=== PATIENT | female | born 1980 | race Caucasian/White ===

== ENCOUNTER → 2017-02-08 | Outpatient (CLI) | payer OTHER ==
[2017-02-08 16:15] LABS: HEPATITIS B AB POS
== END | disposition home or self-care (01) ==
LOC: C.LABSPEC 15:42
PROVIDERS: ATTEND Nurse Practitioner Family
DX: Z77.21 Contact with and (suspected) exposure to potentially hazardous body fluids (principal)

== ENCOUNTER 2020-03-16 02:39 | Inpatient (IN) ==
[2020-03-16] MEDS ORDERED: OXYTOCIN 30 UNITS/500 ML BAG IV PRN ×3 (03:27→14:51)
[2020-03-16] MEDS: LACTATED RINGER'S 1,000 ML IV PRN ×2 (03:34→11:04)
[2020-03-16] MEDS ORDERED: BUPIVACAINE 0.25% 30 ML VIAL ONE (03:42)
[2020-03-16] MEDS ORDERED: ePHEDrine sulfate 50 MG/ML AMP ONE (03:42)
[2020-03-16] MEDS ORDERED: fentaNYL citrate 100 MCG/2 ML VIAL ONE (03:42)
[2020-03-16] MEDS ORDERED: fentaNYL 2MCG/ML ROPIV 1.25MG/ML 100 ML BAG EPI ONE (03:43)
--- NOTE | 2020-03-16 03:50 | History & Physical Report ---
Date of Service March 16, 2020 Assessment & Plan Admission and Anticipated Discharge Date Admission Date: March 16, 2020 IUP at 41 weeks in active labor currently having moderate variables that were recurrent but with position change have now become intermittent. History of Present Illness Primary Care Provider: NO PCP Patient is a 39 yo white female EDC 03/09/20 who presents at 41 weeks with regular contractions and bloody show. contractions are now every 5-7 minutes. (-) SPROM. GBS negative. complicated by AMA and post term gestation. Allergies Allergy/AdvReac Type Severity Reaction Status Date / Time No Known Allergies Allergy Verified 03/16/20 03:06 Home Medications Home Medications Medication Instructions Recorded Confirmed Type prenat.vits,dilma,mem-nzln-kdeao 1 tab PO DAILY 07/23/19 03/16/20 History ondansetron HCl 4 mg tablet 4 mg PO Q4H #30 tab 11/11/19 03/16/20 Rx docusate sodium [Colace] 100 mg PO DAILY 03/16/20 03/16/20 History Patient History Medical History Cervical cancer screening Supervision of elderly multigravida Surgical History H/O knee surgery S/P wisdom tooth extraction Family History Father Dyslipidemia Hypertension Heart disease Osteoporosis Grandmother (Maternal) Colorectal cancer Other Skin cancer Social History Smoking Status: Former smoker Smoking End Date: 2017; Do You Dip or Chew Tobacco: No; Hx Alcohol Use: No Hx Substance Use: No Preferred Language: Latvian Communication Ability: Effective 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 Required: No Beliefs That Will Affect Care: None marital status: Single marital status details: Adam Irishchristiana (33) [phone] Current Living Situation: Family and Significant Other Current Living Situation Comment: adam, 2 children current occupational status: employed 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 @ [employer] Other Information That Helps Us Care for You: No Feels Safe at Home: Yes Safety Concerns: Feels Safe At This Time Assistive Devices: Glasses Review of Systems All systems reviewed & are unremarkable except as noted in HPI & below Physical Exam Constitutional: WD/WN, vitals as above Respiratory: normal respiratory effort, lungs clear to auscultation Cardiovascular: RRR, no murmur, no edema Psychiatric: A+Ox3, euthymic affect Genitourinary: OB Exam Abdomen: + vertex (by ultrasound) and + regular contractions Manual OB Exam: + cervical dilation 3 cm, + cervical effacement 100% and + station high OB Exam Monitor Tracing: + external FHT monitor used, + external uterine monitor used, + category II, + normal FHT variability and + variable decelerations (moderate- were recurrent initially then intermittent) Results & Data ([facility]) Vital Signs (Past 12 Hours) Vital Signs Temp Pulse Resp BP 03/16/20 03:03 97.9 F 75 20 136/82 Coding Level of Care Code None
[2020-03-16 04:04] LABS: Hematocrit (blood only) 37.3 % (37-47); Hemoglobin 12.7 g/dL (12.0-16.0); Mean Corpuscular Hemoglobin 30.2 pg (25-34); Mean Corpuscular Volume 88.6 fL (80-100); Mean Platelet Volume 10.4 fL (7.4-10.4); Platelet Count 240 K/uL (130-400); RDW Coefficient of Variation 14.1 % (11.5-14.5); RDW Standard Deviation 45.6 fL (36.4-46.3); Red Blood Count 4.21 M/uL (4.2-5.4); White Blood Count 13.67 K/uL (4.8-10.8)
[2020-03-16] MEDS ORDERED: ONDANSETRON INJ 2 MG/ML 2 ML VIAL ONE (04:08)
[2020-03-16] MEDS ORDERED: ONDANSETRON INJ 2 MG/ML 2 ML VIAL IV PRN ×2 (04:09→05:25)
--- NOTE | 2020-03-16 04:54 | Anesthesiology Consultation ---
Date of Service March 16, 2020 Assessment & Plan (1) Encounter for pre-operative examination: Chart Review Chart Review: Patient NOT seen in Pre Admission Testing and Acceptable Risk for Labor Epidural Consults Requested none ASA ASA2 Proposed Anesthesia Anesthesia Type: Labor Epidural Risk / Benefits Reviewed With: PT / POA / Parent / Guardian, Accepts Plan and Informed Consent Obtained History Height/Weight Height: 5 ft 4 in Weight: 71.214 kg Allergies Allergy/AdvReac Type Severity Reaction Status Date / Time No Known Allergies Allergy Verified 03/16/20 03:06 Medications Home Medications Medication Instructions Recorded Confirmed Last Taken prenat.vits,dilma,jmu-yxuk-vmnic 1 tab PO DAILY 07/23/19 03/16/20 03/15/20 08:00 ondansetron HCl 4 mg tablet 4 mg PO Q4H #30 tab 11/11/19 03/16/20 03/15/20 08:00 docusate sodium [Colace] 100 mg PO DAILY 03/16/20 03/16/20 03/15/20 08:00 Active Medications Generic Name Dose Route Start Last Admin Trade Name Freq PRN Reason Stop Dose Admin Lactated Ringer's 1,000 mls @ 125 mls/hr 03/16/20 03:27 03/16/20 04:28 Lr IV 03/18/20 03:26 125 mls/hr .Q8H PRN Infusion L&D Protocol Protocol NPO Date Last Intake of Fluids: 03/16/20 Time Last Intake of Fluids: 04:53 Date Last Intake of Solids: 03/15/20 Time Last Intake of Solids: 19:00 Past Medical History Medical History Cervical cancer screening Supervision of elderly multigravida Exercise / Class Metabolic Activity II 4-5 Yardwork/Stairs/Walk up hill Past Family History Family History Father Dyslipidemia Hypertension Heart disease Osteoporosis Grandmother (Maternal) Colorectal cancer Other Skin cancer Past Surgical History Surgical History H/O knee surgery S/P wisdom tooth extraction Past Anesthesia History No Hx of Anesthesia Complications History of PONV History of PONV Social History Smoking Status: Former smoker Do You Dip or Chew Tobacco: No Smoking End Date: 2017 Hx Alcohol Use: No Hx Substance Use: No Review of Systems Patient denies history of abnormal bleeding or bleeding disorder. Patient denies active use of anticoagulants other than low dose aspirin. Patient denies numbness, tingling or weakness in lower extremities. Negative for chest pain or shortness of breath. Physical Exam Vital Signs Last Vital Signs Temp 36.6 C 03/16/20 03:03 Pulse 81 03/16/20 04:45 Resp 20 03/16/20 03:03 BP 136/82 03/16/20 03:03 Pulse Ox 97 03/16/20 04:45 Constitutional not obese (gravid uterus) ENMT Mouth: no TMJ abnormality and oral opening not small Thyromental Distance: > or= 3.5 Finger Breadths Mallampati Class: II Neck normal visual inspection; neck extension not limited Respiratory normal respiratory effort Auscultation: lungs clear to auscultation bilaterally Cardiovascular Rate/Rhythm: regular rate and regular rhythm Heart Sounds: no murmur Neurologic moves all extremities Motor/Sensory: no sensory deficit Psychiatric Orientation: alert and oriented x 3 Testing Laboratory Results 03/16/20 03:47
[2020-03-16] MEDS ORDERED: DiphenhydrAMINE HCL 50 MG/ML VIAL IV PRN (05:25)
[2020-03-16] MEDS ORDERED: NALOXONE HCL 1 MG in SODIUM CHLORIDE 0.9% 1000ML 1,000 ML IV PRN (05:25)
[2020-03-16] MEDS ORDERED: fentaNYL 2MCG/ML ROPIV 1.25MG/ML 100 ML BAG EPI PRN (05:25)
[2020-03-16] MEDS ORDERED: NALOXONE HCL 0.4 MG/1 ML VIAL/CARP IV PRN (05:25)
[2020-03-16] MEDS ORDERED: ePHEDrine sulfate 50 MG/ML AMP IV PRN (05:25)
[2020-03-16] MEDS ORDERED: CALCIUM CARBONATE 500 MG CHEWABLE TAB PO PRN (10:16)
--- NOTE | 2020-03-16 13:28 | Labor Progress Brief Note ---
Date of Service March 16, 2020 Patient has been 8 cm admitted overnight by Dr. Jimenez multip had an epidural initially contractions spaced however she has had recurrent variable decelerations with contractions she is now progressed to an anterior lip watch the heart rate tracing carefully at this stage would expect vaginal delivery Assessment & Plan Admission and Anticipated Discharge Date Admission Date: March 16, 2020 Results & Data ([facility]) Vital Signs (Past 12 Hours) Vital Signs Temp Pulse Resp BP Pulse Ox 03/16/20 13:22 81 100 03/16/20 13:17 76 100 03/16/20 13:12 98 H 100 03/16/20 13:07 97 H 100 03/16/20 13:02 71 100 03/16/20 12:59 78 125/77 03/16/20 12:57 80 100 03/16/20 12:52 86 100 03/16/20 12:47 79 100 03/16/20 12:45 83 123/72 03/16/20 12:42 82 100 03/16/20 12:37 87 100 03/16/20 12:32 88 100 03/16/20 12:31 98.1 F 80 20 128/75 03/16/20 12:27 84 100 03/16/20 12:22 81 100 03/16/20 12:17 93 H 100 03/16/20 12:16 83 121/76 03/16/20 12:12 79 100 03/16/20 12:07 93 H 100 03/16/20 12:02 83 100 03/16/20 12:00 72 127/75 03/16/20 11:57 81 100 03/16/20 11:52 80 100 03/16/20 11:47 81 100 03/16/20 11:45 82 132/74 03/16/20 11:42 92 H 100 03/16/20 11:37 85 100 03/16/20 11:32 75 100 03/16/20 11:30 70 127/72 03/16/20 11:27 86 100 03/16/20 11:22 109 H 94 03/16/20 11:17 74 100 03/16/20 11:15 74 135/74 03/16/20 11:12 70 100 03/16/20 11:07 73 100 03/16/20 11:02 87 100 03/16/20 11:00 71 126/73 10/05/20 10:57 74 100 10/05/20 10:52 81 99 10/05/20 10:47 80 100 10/05/20 10:45 75 127/73 10/05/20 10:42 81 100 10/05/20 10:37 94 H 99 10/05/20 10:32 77 100 10/05/20 10:30 74 122/79 10/05/20 10:27 79 99 10/05/20 10:22 80 99 10/05/20 10:17 75 99 10/05/20 10:15 76 130/76 10/05/20 10:12 77 100 10/05/20 10:07 74 98 10/05/20 10:02 78 99 10/05/20 10:01 88 119/76 10/05/20 09:57 84 98 10/05/20 09:52 81 99 10/05/20 09:47 100 H 99 10/05/20 09:45 81 131/80 10/05/20 09:42 83 99 1005/20 09:37 83 98 10/05/20 09:32 95 H 98 10/05/20 09:31 83 123/75 10/05/20 09:25 79 99 10/05/20 09:20 84 99 10/05/20 09:15 81 137/74 98 10/05/20 09:10 77 98 10/05/20 09:05 75 98 10/05/20 09:00 76 120/72 98 10/05/20 08:55 78 98 10/05/20 08:50 83 98 10/05/20 08:45 74 119/68 98 10/05/20 08:40 75 97 10/05/20 08:35 75 98 10/05/20 08:31 74 129/73 10/05/20 08:30 73 99 10/05/20 08:25 88 98 10/05/20 08:20 79 99 10/05/20 08:16 71 126/72 10/05/20 08:15 80 99 10/05/20 08:10 74 99 10/05/20 08:05 69 99 10/05/20 08:00 65 125/71 99 10/05/20 07:55 68 99 10/05/20 07:50 74 99 10/05/20 07:45 67 119/75 98 10/05/20 07:40 65 99 10/05/20 07:35 81 99 10/05/20 07:30 70 132/75 99 10/05/20 07:25 66 98 10/05/20 07:20 72 98 10/05/20 07:15 97.7 F 66 20 129/75 99 10/05/20 07:10 68 99 1005/20 07:05 72 98 10/05/20 07:00 73 123/69 98 1005/20 06:55 70 99 1005/20 06:50 72 99 10/05/20 06:45 73 99 10/05/20 06:44 73 127/80 10/05/20 06:40 76 98 1005/20 06:35 65 99 1005/20 06:31 68 127/79 1005/20 06:30 70 100 10/05/20 06:25 70 99 10/05/20 06:20 69 98 1005/20 06:15 72 18 121/78 98 1005/20 06:10 79 99 1005/20 06:05 97.5 F L 78 18 98 1005/20 06:00 78 137/71 99 1005/20 05:55 72 99 1005/20 05:54 75 126/77 1005/20 05:50 85 131/79 98 1005/20 05:45 70 130/67 98 10/05/20 05:40 64 125/68 99 10/05/20 05:35 77 98 1005/20 05:34 77 131/75 1005/20 05:30 77 134/77 98 10/05/20 05:25 81 97 10/05/20 05:24 88 116/73 10/05/20 05:22 96 H 122/79 10/05/20 05:20 94 H 121/75 98 10/05/20 05:18 88 127/79 1005/20 05:16 103 H 117/75 1005/20 05:15 88 98 10/05/20 05:14 109 H 116/82 10/05/20 05:11 91 H 138/79 10/05/20 05:10 80 99 1005/20 05:05 77 98 1005/20 05:00 78 99 10/05/20 04:55 84 100 03/16/20 04:53 95 H 87 L 03/16/20 04:50 84 97 03/16/20 04:45 81 97 03/16/20 04:40 79 98 03/16/20 04:35 80 100 03/16/20 03:03 97.9 F 75 20 136/82 Coding Level of Care Code None
--- NOTE | 2020-03-16 14:36 | Delivery Summary ---
Vaginal Delivery Summary Date of Service March 16, 2020 Vaginal Delivery Summary Spontaneous vaginal delivery patient arrived earlier in the evening progressed to 8 cm she did have some repeated variable decelerations with that was able to progress to fully dilated she pushed over only a few contractions during delivering a baby in right occiput anterior position there was thin meconium bulb was used to suction the mouth and nares at delivery of the head there was a loose nuchal cord which was passed over the head x1 and gentle traction on the baby no excessive force baby delivered live vigorous infant cord clamped and cut cord gases obtained cord blood obtained placenta removed with gentle traction IV Pitocin started second-degree tear repaired with 3-0 Vicryl sponge and instrument counts correct estimated blood loss 150 mL rectal exam negative for defects or sutures [facility] Vaginal Delivery Charge Procedure Anesthesia type: Epidural
[2020-03-16] MEDS ORDERED: BENZOCAINE 20% AER SPR 82.5 GM CAN EXT PRN (14:51)
[2020-03-16] MEDS ORDERED: SUPERCREAM 0.870% 15 GM JAR EXT PRN (14:51)
[2020-03-16] MEDS ORDERED: ACETAMINOPHEN 325 MG TAB PO PRN (14:51)
[2020-03-16] MEDS ORDERED: DIPHTHERIA/TETANUS/PERTUSSIS 0.5 ML SYR/VIAL IM ONE (14:51)
[2020-03-16] MEDS ORDERED: bisacodyL 10 MG SUPP PR PRN (14:51)
[2020-03-16] MEDS ORDERED: LACTATED RINGER'S 1,000 ML IV SCH (14:51)
[2020-03-16] MEDS ORDERED: OXYCODONE/ACETAMINOPHEN 5mg/325mg TAB PO PRN (14:51)
[2020-03-16] MEDS ORDERED: HYDROCORTISONE ACETATE 25 MG SUPP PR PRN (14:51)
[2020-03-16 15:15] LABS: Base Excess Cord Arterial Bld -3.5 mEq/L (-9-1.8); Base Excess Cord Venous Blood -3.2 mEq/L (-7.7-1.9); CO2 Cord Arterial Blood 52 mmHg (39.1-73.5); Cord Venous Blood HCO3 20 mmol/L (18.4-26.8); Cord Venous Blood PCO2 33 mmHg (30.4-57.2); Cord Venous Blood PO2 36 mmHg (14.1-43.3); HCO3 Cord Arterial Blood 24 mmol/L (19.7-28.5); PO2 Cord Arterial Blood 24 mmHg (4.1-31.7); pH Cord Arterial Blood 7.28 (7.1-7.38)
[2020-03-16 15:17] LABS: Oxygen Sat Cord Arterial Blood < 60.0 % (<60)
--- NOTE | 2020-03-16 16:31 | Anesthesia Procedure Note ---
Date of Service March 16, 2020 Anesthesia Post Epidural Note Vital Signs Vital Signs: Temp Pulse Resp BP Pulse Ox 36.7 C 80 16 135/83 100 03/16/20 12:31 03/16/20 16:15 03/16/20 14:45 03/16/20 16:15 03/16/20 14:27 Notes Mental Status: alert / awake / arousable and participated in evaluation Patient Amnestic to Procedure: No Nausea / Vomiting: adequately controlled Pain: adequately controlled Airway Patency, RR, SpO2: stable & adequate BP & HR: stable & adequate Hydration State: stable & adequate Neuraxial Anesthesia: was administered and sensory block is resolving Anesthetic Complications: no major complications apparent and Pt Satisfied with anesthetic care Epidural: Removed without complications and With tip intact
[2020-03-16] MEDS: DOCUSATE SODIUM 100 MG CAP PO SCH (21:28)
[2020-03-16] MEDS: IBUPROFEN 600 MG TAB PO PRN (21:30)
[2020-03-17 06:26] LABS: Hematocrit (blood only) 30.7 % (37-47); Hemoglobin 10.3 g/dL (12.0-16.0); Mean Corpuscular Hemoglobin 29.9 pg (25-34); Mean Corpuscular Hgb Conc 33.6 g/dL (32-36); Mean Platelet Volume 10.2 fL (7.4-10.4); Platelet Count 184 K/uL (130-400); RDW Coefficient of Variation 14.3 % (11.5-14.5); RDW Standard Deviation 46.6 fL (36.4-46.3); Red Blood Count 3.45 M/uL (4.2-5.4); White Blood Count 12.05 K/uL (4.8-10.8)
--- NOTE | 2020-03-17 06:30 | Obstetrical Progress Note ---
Date of Service <Savage Hook MD - Last Filed: 03/17/20 07:16> March 17, 2020 Assessment & Plan <Savage Hook MD - Last Filed: 03/17/20 07:16> (1) Spontaneous vaginal delivery: Shabana is a 39 y/o female who is now PPD #1 following at 41 weeks - Feels well today. Eating well, voiding well, ambulating well. - Pain well controlled with ibuprofen 600mg Q4H PRN. - Routine PPD care -- OOB, ambulation, diet progression as tolerated - After discharge will have [address] Pettit Day #:: 1 Subjective <Savage Hook MD - Last Filed: 03/17/20 07:16> Shabana is a 39 y/o female who is now PPD #1 following at 41 weeks. Reports feeling well overall this morning. Endorses some abdominal cramping that is well managed on analgesics. Voiding without difficulty. Tolerating meals overnight and able to ambulate some. Endorses passing gas without difficulty. Some persistent lochia with some improvement this morning. Breast/Bottle feeding. Review of Systems Denies fever, chills, sweats Denies shortness of breath, difficulty breathing, chest pain, palpitations, chest pressure. Denies breast pain. Denies dysuria. Denies headache or changes in vision. Physical Exam <Savage Hook MD - Last Filed: 03/17/20 07:16> General: Alert, oriented. No acute distress. Cardiac: Regular rate and rhythm, no murmurs/rubs/gallops. Respiratory: Clear to auscultation bilaterally a/p, no wheezes/rales/rhonchi. No increased work of breathing. Symmetrical chest rise. No respiratory distress. Abdomen: Soft, nontender, nondistended. Bowel sounds present. Uterus: Uterine fundus firm, palpable 2 cm below umbilicus. Lower Extremities: No lower extremity edema or swelling. No deep calf pain. Henrik's negative bilaterally. Results & Data ([facility]) <Savage Hook MD - Last Filed: 03/17/20 07:16> Vital Signs (Past 12 Hours) Vital Signs Temp Pulse Resp BP Pulse Ox 10/06/20 03:45 36.6 C 79 18 100/66 03/16/20 23:20 36.6 C 82 18 103/67 03/16/20 20:10 36.9 C 81 18 120/78 98 03/16/20 18:40 37.0 C 87 16 124/77 99 <Rafi Pettit MD, FACOG - Last Filed: 03/17/20 07:38> Co-Signing Physician Notes Resident Physician Supervision Note: I was present with Dr. Hook during the history and exam. I discussed the case with the resident and agree with the findings and plan as documented in the note. Any exceptions or clarifications are listed here: [None] Documented By: Rafi Pettit MD, FACOG Resident Activity Tracking <Savage Hook MD - Last Filed: 03/17/20 07:16> Resident Involvement: Resident Care Provided Care Provided: Adult Hospital Medicine and OB Delivery
[2020-03-17] MEDS: PRENATAL VITAMIN 1 TAB PO SCH (08:35)
[2020-03-17] MEDS: DOCUSATE SODIUM 100 MG CAP PO SCH ×2 (08:35→20:52)
[2020-03-17] MEDS: IBUPROFEN 600 MG TAB PO PRN ×2 (08:35→20:52)
[2020-03-17] MEDS ORDERED: bisacodyL 5 MG TABEC PO SCH (20:00)
[2020-03-18 06:12] LABS: Hematocrit (blood only) 28.7 % (37-47); Hemoglobin 9.6 g/dL (12.0-16.0)
--- NOTE | 2020-03-18 06:29 | Obstetrical Progress Note ---
Date of Service <Svaage Hook MD - Last Filed: 03/18/20 06:31> March 18, 2020 Assessment & Plan <Savage Hook MD - Last Filed: 03/18/20 06:31> (1) Spontaneous vaginal delivery: Shabana is a 39 y/o female who is now PPD #2 following at 41 weeks - Feels well today. Eating well, voiding well, ambulating well. - Pain well controlled with ibuprofen 600mg Q4H PRN. - Routine PPD care -- continue to promote OOB and ambulation - After discharge will have [address] Pettit - Sandy for d/c today Subjective <Savage Hook MD - Last Filed: 03/18/20 06:31> Shabana is a 39 y/o female who is now PPD #2 following at 41 weeks. Reports feeling well overall this morning. Endorses minimal abdominal cramping that is well managed on analgesics. Voiding without difficulty. Tolerating meals overnight and able to ambulate some. Endorses passing gas. Some persistent lochia with some improvement this morning. Breast feeding fine. Review of Systems Denies fever, chills, sweats Denies shortness of breath, difficulty breathing, chest pain, palpitations, chest pressure. Denies breast pain. Denies dysuria. Denies headache or changes in vision. Physical Exam <Savage Hook MD - Last Filed: 03/18/20 06:31> General: Alert, oriented. No acute distress. Cardiac: Regular rate and rhythm, no murmurs/rubs/gallops. Respiratory: Clear to auscultation bilaterally a/p, no wheezes/rales/rhonchi. No increased work of breathing. Symmetrical chest rise. No respiratory distress. Abdomen: Soft, nontender, nondistended. Bowel sounds present. Uterus: Uterine fundus firm, palpable 3 cm below umbilicus. Lower Extremities: No lower extremity edema or swelling. No deep calf pain. Henrik's negative bilaterally. Results & Data ([facility]) <Savage Hook MD - Last Filed: 03/18/20 06:31> Vital Signs (Past 12 Hours) Vital Signs Temp Pulse Resp BP Pulse Ox 03/17/20 23:40 36.5 C 69 18 115/77 97 03/17/20 20:00 36.8 C 80 18 123/75 97 <Malgorzata Leon DO - Last Filed: 03/18/20 08:00> Co-Signing Physician Notes Resident Physician Supervision Note: I was present with Dr. Hook during the history and exam. I discussed the case with the resident and agree with the findings and plan as documented in the note. Any exceptions or clarifications are listed here: PPD#2 doing well. DC home today. Instructions reviewed. Breast pump rx given. Documented By: Malgorzata Leon DO Resident Activity Tracking <Savage Hook MD - Last Filed: 03/18/20 06:31> Resident Involvement: Resident Care Provided Care Provided: Adult Hospital Medicine and OB Delivery
[2020-03-18] MEDS: PRENATAL VITAMIN 1 TAB PO SCH (08:41)
[2020-03-18] MEDS: DOCUSATE SODIUM 100 MG CAP PO SCH (08:41)
== END 2020-03-18 12:20 | disposition home or self-care (01) | DRG 807 ==
LOC: OPB 02:39 → 4S1 02:41 → 4S2 18:00

== ENCOUNTER 2023-11-13 13:40 | Inpatient (IN) ==
[2023-11-13] MEDS ORDERED: ACETAMINOPHEN 325 MG TAB PO PRN (14:36)
[2023-11-13] MEDS ORDERED: OXYTOCIN 30 UNITS/NSS 30 UNITS/500 ML BAG IV PRN (14:36)
[2023-11-13] MEDS ORDERED: CALCIUM CARBONATE 500 MG CHEWABLE TAB PO PRN (14:36)
[2023-11-13] MEDS ORDERED: LIDOCAINE 1% LOCAL 20 ML VIAL INFIL PRN (14:36)
[2023-11-13] MEDS: LACTATED RINGER'S 1,000 ML IV PRN (14:45)
--- NOTE | 2023-11-13 14:48 | History & Physical Report ---
Date of Service November 13, 2023 Assessment & Plan (1) with 38 completed weeks gestation: (2) PROM (premature rupture of membranes): Plan prom confirmed. no onset of labor. Plan pitocin induction since 9 hours from srom. fetus category one. anticipate vaginal delivery. efw of 98% at 36 weeks noted. Admission and Anticipated Discharge Date Admission Date: November 13, 2023 History of Present Illness Chief Complaint: prom Primary Care Provider: Curtis Yeh MD Patient is a with iup at 38 4/7 weeks. Presented to labor and delivery from the office. She noted that she had some small bits of leaking since 5:30 am. When she told this to Dr. Haile, it seems he did an amnisure and it was positive. She notes not really marielena. no vaginal bleeding. +fm. and Delivery Plans AMA>40@del *Anatomy Scan @ 20wks * Echo [id number] 08/08/23--trace degree of aortic valve insufficiency; recommend f/u echo 4wks-10/10/23; rpt normal -recommend echo *Growth scan @32wks---EFW 91% *Weekly NST's @36 wks *Twice weekly NST @38wks *Weekly KATERYNA's @38wks *Deliver by 40 wks Pyelectasis - Bilateral Mild - Offered MFM referral - MFM consult if severe - Recheck with growth at 32 weeks -Pyelectasis resolved and EFW 91% 98% at 36 weeks OB Labs: Blood Type O Positive 04/07/23 Antibody Screen NEGATIVE 04/07/23 Hemoglobin 11.1 g/dl (12.0-16.0) L 09/15/23 Hematocrit 33.4 % (37.0-47.0) L 09/15/23 Mean Corpuscular Volume 80.7 fL (80.0-100.0) 04/07/23 Platelet Count 282 K/uL (130-400) 04/07/23 Varicella-Zoster IgG Antibody 2664.00 index 04/21/22 Rubella IgG Antibody Immune (Immune) 04/07/23 Rapid Plasma Reagin Nonreactive (Nonreactive) 04/07/23 Hepatitis B Surface Antigen Neg (Neg) 08/02/19 Hepatitis B Surface Antigen. NON-REACTIVE (NON-REACTIVE) 04/07/23 Hepatitis C Antibody (EIA) NON-REACTIVE (NON-REACTIVE) 04/07/23 HIV (1&2) Ab and P24 Ag, 4th Gener Neg (Neg) 08/02/19 HIV (1&2) Ag and Ab Confirmation NON-REACTIVE (NON-REACTIVE) 04/07/23 Glucose 1 Hour 50 gm Load 178 mg/dl (70-130) H 09/15/23 Maternal Serum Alpha Fetoprotein 50.0 ng/mL 06/09/23 OB Optional Labs: Chlamydia trachomatis RNA Not Detected (NotDetected) 04/07/23 Neisseria gonorrhoeae RNA Not Detected (NotDetected) 04/07/23 Thyroid Stimulating Hormone (TSH) 2.060 uIu/ml (0.300-4.500) 09/02/22 Alpha Fetoprotein Triple Screen SEE NOTE 06/09/23 Labs Reviewed: (-)CF/SMA in prior , HK cfdna-low risk--mln gbs neg Allergies Allergy/AdvReac Type Severity Reaction Status Date / Time No Known Allergies Allergy Verified 11/13/23 09:45 Home Medications Medication Instructions Recorded Confirmed Type prenat.vits,dilma,har-pslw-ffanw 1 tab PO DAILY 07/23/19 11/13/23 History docusate sodium 100 mg capsule 100 mg PO BID PRN Constipation 08/04/22 11/13/23 History (Colace) Acetaminophen Extra Strength 2 tab PO Q6 PRN Pain 08/09/22 11/13/23 History ondansetron HCl 4 mg tablet 4 mg PO Q6H PRN nausea and 07/19/23 11/13/23 Rx vomiting #30 tabs calcium carbonate [Tums] PO PRN Acid Reflux 08/16/23 11/13/23 History famotidine 10 mg tablet (Acid 10 mg PO DAILY 09/18/23 11/13/23 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 s/s of fatigue & cough and doing well currently Surgical History S/P right knee arthroscopy S/P wisdom tooth extraction Family History Father Osteoporosis Dyslipidemia Heart disease Hypertension PONV (postoperative nausea and vomiting) Grandmother (Maternal) Colorectal cancer Sister PONV (postoperative nausea and vomiting) Mother Pre-diabetes Hypertension Other Skin cancer Denies family history of Ovarian cancer Breast cancer Social History Smoking Status: Never smoker Second Hand Exposure: No; Do You Dip or Chew Tobacco: No; Hx Alcohol Use: No Hx Substance Use: No Preferred Language: Faroese Communication Ability: Effective Special Services Coordinator Required: No Beliefs That Will Affect Care: None marital status: marital status details: Adam Marx (36) [phone] Current Living Situation: Spouse Current Living Situation Comment: Lives with spouse and 3 children current occupational status: employed 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 Date GA wks Lbr Lgth wt Sex Type del Anes Place Del Prov ? Comment 05/05/05 41 6lb 14oz F Epid ural Other [place] No 06/01/07 41 7lb 4oz F Epidu ral Other [place] No 03/16/20 41 7lb 2.7oz F Epi dural [facility] Dr. Pettit No 08/09/22 Aborted-Spontaneous D&E Dr. Haile [employer] History noncontributory Physical Exam Constitutional: WD/WN, vitals as above Gastrointestinal (Abdomen): soft, gravid , nt Psychiatric: A+Ox3, euthymic affect Genitourinary: cx--/50/-2 toco--kofi efm--140s with mod variability, accels to 160s, no decels Results & Data Vital Signs (Past 12 Hours) Vital Signs Temp Pulse Resp BP 11/13/23 13:59 90 129/82 11/13/23 13:55 37.0 C 90 16 129/82 Coding Level of Care Code None Diagnoses with 38 completed weeks gestation Z3A.38 PROM (premature rupture of membranes) O42.90
[2023-11-13] MEDS: OXYTOCIN 30 UNITS/NSS 30 UNITS/500 ML BAG IV PRN ×2 (15:04→22:40)
[2023-11-13 15:13] LABS: Hematocrit (blood only) 36.1 % (37.0-47.0); Hemoglobin 12.8 g/dl (12.0-16.0); Mean Corpuscular Hgb Conc 35.5 g/dL (32.0-36.0); Mean Corpuscular Volume 84.5 fL (80.0-100.0); Mean Platelet Volume 10.1 fL (9.4-12.4); Platelet Count 203 K/uL (130-400); RDW Coefficient of Variation 14.6 % (11.5-14.5); RDW Standard Deviation 45.1 fL (36.4-46.3); Red Blood Count 4.27 M/uL (4.20-5.40); White Blood Count 8.07 K/ul (4.8-10.8)
[2023-11-13] MEDS ORDERED: BUPIVACAINE 0.25% PF 30 ML VIAL EPI PRN (18:42)
[2023-11-13] MEDS ORDERED: fentaNYL citrate PF 100 MCG/2 ML VIAL EPI PRN (18:42)
[2023-11-13] MEDS ORDERED: diphenhydrAMINE 50 MG/ML VIAL IV PRN (18:42)
[2023-11-13] MEDS ORDERED: NALBUPHINE HCL 5 MG in SYRINGE 0 ML IV PRN (18:42)
[2023-11-13] MEDS ORDERED: PROMETHAZINE HCL 6.25 MG in SODIUM CHLORIDE 0.9% 50 ML IV PRN (18:42)
[2023-11-13] MEDS ORDERED: ROPIVACAINE 0.5% PF 5 MG/ML 20 ML VIAL EPI PRN (18:42)
[2023-11-13] MEDS ORDERED: fentANYL 2 MCG/ML BUPIVacaine 0.125%-NSS 100ML BAG EPI PRN (18:42)
[2023-11-13] MEDS ORDERED: LIDOCAINE 2% MPF LOCAL 5 ML VIAL EPI PRN (18:42)
[2023-11-13] MEDS ORDERED: SODIUM CHLORIDE 0.9% PF INJ 10 ML VIAL EPI PRN (18:42)
[2023-11-13] MEDS ORDERED: NALOXONE HCL 1 MG in SODIUM CHLORIDE 0.9% 1,000 ML IV PRN (18:42)
[2023-11-13] MEDS ORDERED: NALOXONE HCL 0.4 MG/1 ML VIAL/CARP IV PRN (18:42)
--- NOTE | 2023-11-13 18:42 | Anesthesiology Consultation ---
Date of Service November 13, 2023 Assessment & Plan Chart Review Chart Review: Patient NOT seen in Pre Admission Testing and Acceptable Risk for Labor Epidural Consults Requested none ASA ASA2 Proposed Anesthesia Anesthesia Type: Labor Epidural Risk / Benefits Reviewed With: PT / POA / Parent / Guardian, Accepts Plan and Informed Consent Obtained History Height/Weight Height: 5 ft 4.5 in Weight: 74.389 kg Allergies Allergy/AdvReac Type Severity Reaction Status Date / Time No Known Allergies Allergy Verified 11/13/23 09:45 Medications Home Medications Medication Instructions Recorded Confirmed Last Taken prenat.vits,dilma,hpa-kasr-[id number] 1 tab PO DAILY 07/23/19 11/13/23 11/12/23 docusate sodium 100 mg capsule 100 mg PO BID PRN Constipation 08/04/22 11/13/23 11/12/23 (Colace) Acetaminophen Extra Strength 2 tab PO Q6 PRN Pain 08/09/22 11/13/23 11/05/23 ondansetron HCl 4 mg tablet 4 mg PO Q6H PRN nausea and 07/19/23 11/13/23 10/30/23 vomiting #30 tabs calcium carbonate [Tums] PO PRN Acid Reflux 08/16/23 11/13/23 11/12/23 famotidine 10 mg tablet (Acid 10 mg PO DAILY 09/18/23 11/13/23 11/12/23 Personnel And Payroll Technician (famotidine)) ferrous sulfate PO Q OTHER DAY 10/02/23 11/13/23 11/12/23 Active Medications Generic Name Dose Route Start Last Admin Trade Name Freq PRN Reason Stop Dose Admin Lactated Ringer's 1,000 mls @ 125 mls/hr 11/13/23 14:36 11/13/23 18:27 Lr IV 11/15/23 14:35 999 mls/hr .Q8H PRN Infusion L&D Protocol Protocol Oxytocin 30 units in 500 mls @ 10 mls/hr 11/13/23 14:57 11/13/23 17:52 Pitocin 30 Units/Nss IV 11/15/23 14:56 0.6 units/hr .Q24H PRN 10 mls/hr Labor Induction/Augmentation Titration Protocol 0.6 UNITS/HR Past Medical History Medical History Varicella vaccination Asthma as a teenager (since outgrown) Hx of motion sickness Nausea and vomiting after administration of anesthetic agent History of COVID-19 tested positive 06/20/22 at [facility]. s/s of fatigue & cough and doing well currently Exercise / Class Metabolic Activity II 4-5 Yardwork/Stairs/Walk up hill Past Family History Family History Father Osteoporosis Dyslipidemia Heart disease Hypertension PONV (postoperative nausea and vomiting) Grandmother (Maternal) Colorectal cancer Sister PONV (postoperative nausea and vomiting) Mother Pre-diabetes Hypertension Other Skin cancer Denies family history of Ovarian cancer Breast cancer Past Surgical History Surgical History S/P right knee arthroscopy S/P wisdom tooth extraction Past Anesthesia History No Hx of Anesthesia Complications and No Family Hx of Anesthesia Complications History of PONV No Hx of PONV and No Hx of Motion Sickness Social History Smoking Status: Never smoker tobacco type: cigarettes Do You Dip or Chew Tobacco: No Hx Alcohol Use: No Hx Substance Use: No substance use type: does not use Physical Exam Vital Signs Last Vital Signs Temp 37.1 C 11/13/23 17:00 Pulse 75 11/13/23 18:26 Resp 16 11/13/23 13:55 BP 124/74 11/13/23 18:26 ENMT Mouth: no dentition abnormality Thyromental Distance: > or= 3.5 Finger Breadths Mallampati Class: II Neck normal visual inspection Respiratory normal respiratory effort Auscultation: lungs clear to auscultation bilaterally Cardiovascular Rate/Rhythm: regular rate and regular rhythm Psychiatric Orientation: alert Testing Laboratory Results 11/13/23 14:58
[2023-11-13] MEDS: fentANYL 2 MCG/ML BUPIVacaine 0.125%-NSS 100ML BAG ONE (18:57)
[2023-11-13] MEDS: LIDOCAINE 2%/EPINEPHRINE 1:200,000 20 ML PF ONE (19:07)
[2023-11-13] MEDS: SODIUM CHLORIDE 0.9% PF INJ 10 ML VIAL ONE (19:07)
[2023-11-13] MEDS: BUPIVACAINE 0.25% PF 30 ML VIAL ONE (19:07)
[2023-11-13] MEDS: ONDANSETRON INJ 2 MG/ML 2 ML VIAL IV PRN (19:43)
[2023-11-13] MEDS: fentaNYL citrate PF 100 MCG/2 ML VIAL ONE (19:51)
[2023-11-13] MEDS: ePHEDrine sulfate 50 MG/ML AMP ONE (19:51)
[2023-11-13] MEDS: BUPIVACAINE 0.25% PF 30 ML VIAL EPI STA (19:51)
[2023-11-13] MEDS: fentaNYL citrate PF 100 MCG/2 ML VIAL EPI STA (19:51)
[2023-11-13] MEDS: ePHEDrine sulfate 50 MG/ML AMP IV PRN (19:55)
--- NOTE | 2023-11-13 19:58 | Labor Progress Brief Note ---
Date of Service November 13, 2023 Subjective comfortable Assessment & Plan (1) PROM (premature rupture of membranes): (2) with 38 completed weeks gestation: Plan continue current management. fetus category one. anticipate . Admission and Anticipated Discharge Date Admission Date: November 13, 2023 Physical Exam Physical Exam: cx--3-4/90/-2 toco--q2-4min, pit at 10 efm--130s wtih mod variability, small accels, no decels Results & Data Vital Signs (Past 12 Hours) Vital Signs Temp Pulse Resp BP Pulse Ox O2 Del Method 11/13/23 19:54 108 H 83/53 L 11/13/23 19:52 82 103/63 11/13/23 19:50 98 11/13/23 19:50 93 H 11/13/23 19:50 84 102/59 L 11/13/23 19:47 98 H 84/46 L 11/13/23 19:45 89 97 11/13/23 19:43 115 H 90/51 L 11/13/23 19:40 120 H 98 11/13/23 19:35 98 H 98 11/13/23 19:30 109 H 18 96 11/13/23 19:27 101 H 117/70 11/13/23 19:25 100 H 98 11/13/23 19:20 112 H 97 11/13/23 19:15 99 H 97 11/13/23 19:11 85 116/66 11/13/23 19:10 36.8 C 18 11/13/23 19:10 Room Air 11/13/23 19:10 36.8 C 86 18 97 11/13/23 19:09 96 H 114/60 93 11/13/23 19:07 100 H 125/57 L 11/13/23 19:05 89 130/62 96 11/13/23 19:03 95 H 134/62 11/13/23 19:01 85 125/72 11/13/23 19:00 90 97 11/13/23 18:59 93 H 128/86 11/13/23 18:57 81 129/77 11/13/23 18:55 92 H 98 11/13/23 18:50 71 99 11/13/23 18:45 78 99 11/13/23 18:26 75 124/74 11/13/23 17:15 68 141/78 H 11/13/23 17:00 37.1 C 11/13/23 16:16 69 148/79 H 11/13/23 15:09 88 127/84 11/13/23 13:59 90 129/82 11/13/23 13:55 37.0 C 90 16 129/82 Coding Level of Care Code None Diagnoses PROM (premature rupture of membranes) O42.90 with 38 completed weeks gestation Z3A.38
[2023-11-13] MEDS: SODIUM CHLORIDE 0.9% PF INJ 10 ML VIAL EPI STA (20:06)
[2023-11-13] MEDS: LIDOCAINE 2%/EPINEPHRINE 1:200,000 20 ML PF EPI STA (20:06)
--- NOTE | 2023-11-13 22:14 | Delivery Summary ---
Vaginal Delivery Summary Date of Service November 13, 2023 Vaginal Delivery Summary and 2nd Degree LAC Pre-operative Diagnosis: at 38 4/7 pprom Post-operative Diagnosis: same Procedure: pitocin epidural second degree laceration and repair EBL: 200cc Anesthesia: epidural Procedure: The patient presented to labor and delivery with pprom for 9 hours. Pitocin initiated and epidural given. She progressed to c/c/0. The patient pushed for 4contractions to deliver a viable male infant in kamron position. A loose nuchal cord was reduced. The shoulders were immediately delivered and the rest of the infant was then delivered without difficulty. The baby was vigorous. The nose and mouth were bulb suctioned and the was placed in the maternal abdomen for drying and attention. Cord was clamped and cut at one minute of life. Cord blood obtained. Placenta delivered spontaneous, intact with a three vessel cord. Cervix/sulci/rectum were intact. A small second degree perineal laceration was repaired in the normal standard fashion. Hemost asis obtained with dilute pitocin and fundal massage. Apgars were 8/9. Mother and baby doing well at the end of the delivery. [facility] [place] Charge Delivery Type Details: and 2nd Degree LAC
[2023-11-13] MEDS ORDERED: HYDROCORTISONE ACETATE 25 MG SUPP PR PRN (22:30)
[2023-11-13] MEDS ORDERED: bisacodyL 10 MG SUPP PR PRN (22:30)
[2023-11-13] MEDS ORDERED: oxyCODONE/ACETAMINOPHEN 5mg/325mg TAB PO PRN (22:30)
[2023-11-13] MEDS: DIPHTHER/TETAN/PERTUS Vaccine (Tdap, Adol/Adult) 0.5mL IM ONE (23:49)
[2023-11-14] MEDS: BENZOCAINE 20% SPRY 85 APPLN/85 GM CAN EXT PRN (00:12)
[2023-11-14] MEDS: IBUPROFEN 600 MG TAB PO PRN (04:07)
--- NOTE | 2023-11-14 05:44 | Obstetrical Progress Note ---
Date of Service November 14, 2023 Assessment & Plan (1) Encounter for care and examination after delivery: Plan 42 y/o PPD#1 s/p Doing well Encourage ambulation Vial signs reviewed Pain control Encourage Rubella immune, BGT: O+ Continue post care Admission and Anticipated Discharge Date Admission Date: November 13, 2023 Supervising Physician Co-Signing Physician Notes Resident Physician Supervision Note: I interviewed and examined the patient. Discussed with Dr. Drake and agree with findings and plan as documented in the note. Any exceptions or clarifications are listed here: Doing well. Breast feeding. Routine care. Home tomorrow. Documented By: Maricarmen Middleton MD, FACOG Subjective 42 yo post- day 1 s/p Ambulation: ambulating normally Voiding: no voiding problems Passing Gas:: Yes Diet Tolerance:: regular diet Lochia:: Small Feeding Type: breast feeding Current Pain Level: Resting comfortably this AM in NAD. Denies PARDO, CP, SOB, N/V/D, LE pain/swelling. Review of Systems Review of Systems: as per hpi Physical Exam Physical Exam: General: patient resting comfortably, NAD, non-toxic in appearance, AA&O x 4, answers questions appropriately. Heart: +S1/S2, regular, no m/r/g Lungs: equal air entry bilaterally, no rales/rhonchi/wheezes Abd: +BS, soft, NT/ND, uterine fundus firm at umbilicus Ext: warm, no clubbing/cyanosis or edema, Henrik's neg. Neuro: nonfocal, patient AA&O x 4, speech intact, no facial droop, moving all extremities on command. Results & Data Vital Signs (Past 12 Hours) Vital Signs Temp Pulse Pulse Resp BP BP Pulse Ox 11/14/23 04:00 36.6 C 52 L 16 136/88 97 11/14/23 00:30 36.7 C 73 18 126/78 97 11/14/23 00:06 78 118/71 11/14/23 00:05 36.9 C 18 11/13/23 23:51 83 124/72 11/13/23 23:36 68 126/71 11/13/23 23:21 83 138/82 11/13/23 23:06 84 136/78 11/13/23 23:05 18 06/03/24 22:51 76 120/63 11/13/23 22:50 18 11/13/23 22:36 82 124/64 11/13/23 22:35 18 11/13/23 22:21 82 115/62 11/13/23 22:20 18 11/13/23 22:06 87 121/66 11/13/23 22:05 18 11/13/23 22:05 88 96 11/13/23 22:00 99 H 97 11/13/23 21:57 20 11/13/23 21:57 20 11/13/23 21:55 125 H 78 L 11/13/23 21:54 123 H 121/64 11/13/23 21:50 119 H 97 11/13/23 21:45 112 H 97 11/13/23 21:40 84 97 11/13/23 21:39 110 H 104/66 11/13/23 21:35 102 H 98 11/13/23 21:30 85 18 97 11/13/23 21:25 87 97 11/13/23 21:24 81 111/70 11/13/23 21:21 93 H 111/68 11/13/23 21:20 91 H 97 11/13/23 21:15 73 96 11/13/23 21:14 77 124/78 11/13/23 21:10 36.9 C 80 130/75 97 11/13/23 21:05 87 97 11/13/23 21:04 81 117/73 11/13/23 21:00 18 11/13/23 21:00 80 18 98 11/13/23 20:59 90 116/67 11/13/23 20:55 93 H 98 11/13/23 20:54 90 124/71 11/13/23 20:50 94 H 98 11/13/23 20:49 76 116/69 11/13/23 20:45 81 122/69 98 11/13/23 20:40 77 97 11/13/23 20:39 88 119/75 11/13/23 20:35 88 98 11/13/23 20:34 96 H 116/72 11/13/23 20:30 77 18 98 11/13/23 20:29 93 H 111/69 11/13/23 20:25 78 98 11/13/23 20:24 80 117/69 11/13/23 20:20 85 98 11/13/23 20:19 76 113/68 11/13/23 20:15 96 H 98 11/13/23 20:14 77 113/70 11/13/23 20:10 100 H 98 11/13/23 20:09 80 111/66 11/13/23 20:05 83 97 11/13/23 20:03 104 H 112/67 11/13/23 20:00 18 11/13/23 20:00 18 11/13/23 20:00 99 11/13/23 20:00 92 H 11/13/23 20:00 80 122/69 11/13/23 19:58 95 H 115/62 11/13/23 19:56 93 H 125/71 11/13/23 19:55 90 98 11/13/23 19:54 108 H 83/53 L 11/13/23 19:52 82 103/63 11/13/23 19:50 98 11/13/23 19:50 93 H 11/13/23 19:50 84 102/59 L 11/13/23 19:47 98 H 84/46 L 11/13/23 19:45 89 97 11/13/23 19:43 115 H 90/51 L 11/13/23 19:40 120 H 98 11/13/23 19:35 98 H 98 11/13/23 19:30 109 H 18 96 11/13/23 19:27 101 H 117/70 11/13/23 19:25 100 H 98 11/13/23 19:20 112 H 97 11/13/23 19:15 99 H 97 11/13/23 19:11 85 116/66 11/13/23 19:10 36.8 C 18 11/13/23 19:10 11/13/23 19:10 36.8 C 86 18 97 11/13/23 19:09 96 H 114/60 93 11/13/23 19:07 100 H 125/57 L 11/13/23 19:05 89 130/62 96 11/13/23 19:03 95 H 134/62 11/13/23 19:01 85 125/72 11/13/23 19:00 90 97 11/13/23 18:59 93 H 128/86 11/13/23 18:57 81 129/77 11/13/23 18:55 92 H 98 11/13/23 18:50 71 99 11/13/23 18:45 78 99 11/13/23 18:26 75 124/74 O2 Del Method 11/14/23 04:00 Room Air 11/14/23 00:30 Room Air 11/14/23 00:06 11/14/23 00:05 11/13/23 23:51 11/13/23 23:36 11/13/23 23:21 11/13/23 23:06 11/13/23 23:05 11/13/23 22:51 11/13/23 22:50 11/13/23 22:36 11/13/23 22:35 11/13/23 22:21 11/13/23 22:20 11/13/23 22:06 11/13/23 22:05 11/13/23 22:05 11/13/23 22:00 11/13/23 21:57 11/13/23 21:57 11/13/23 21:55 11/13/23 21:54 11/13/23 21:50 11/13/23 21:45 11/13/23 21:40 11/13/23 21:39 11/13/23 21:35 11/13/23 21:30 11/13/23 21:25 11/13/23 21:24 11/13/23 21:21 11/13/23 21:20 11/13/23 21:15 11/13/23 21:14 11/13/23 21:10 11/13/23 21:05 11/13/23 21:04 11/13/23 21:00 11/13/23 21:00 11/13/23 20:59 11/13/23 20:55 11/13/23 20:54 11/13/23 20:50 11/13/23 20:49 11/13/23 20:45 11/13/23 20:40 11/13/23 20:39 11/13/23 20:35 11/13/23 20:34 11/13/23 20:30 11/13/23 20:29 11/13/23 20:25 11/13/23 20:24 11/13/23 20:20 11/13/23 20:19 11/13/23 20:15 11/13/23 20:14 11/13/23 20:10 11/13/23 20:09 11/13/23 20:05 11/13/23 20:03 11/13/23 20:00 11/13/23 20:00 11/13/23 20:00 11/13/23 20:00 11/13/23 20:00 11/13/23 19:58 11/13/23 19:56 11/13/23 19:55 11/13/23 19:54 11/13/23 19:52 11/13/23 19:50 11/13/23 19:50 11/13/23 19:50 11/13/23 19:47 11/13/23 19:45 11/13/23 19:43 11/13/23 19:40 11/13/23 19:35 11/13/23 19:30 11/13/23 19:27 11/13/23 19:25 11/13/23 19:20 11/13/23 19:15 11/13/23 19:11 11/13/23 19:10 11/13/23 19:10 Room Air 11/13/23 19:10 11/13/23 19:09 11/13/23 19:07 11/13/23 19:05 11/13/23 19:03 11/13/23 19:01 11/13/23 19:00 11/13/23 18:59 11/13/23 18:57 11/13/23 18:55 11/13/23 18:50 11/13/23 18:45 11/13/23 18:26 Resident Activity Tracking Resident Involvement: Resident Care Provided Care Provided: OB Delivery
[2023-11-14 07:13] LABS: Hematocrit (blood only) 34.2 % (37.0-47.0); Hemoglobin 11.8 g/dl (12.0-16.0)
[2023-11-14] MEDS: PRENATAL VITAMIN 1 TAB PO SCH (07:45)
[2023-11-14] MEDS: DOCUSATE SODIUM 100 MG CAP PO SCH (07:45)
[2023-11-14] MEDS: ACETAMINOPHEN 325 MG TAB PO PRN (07:45)
--- NOTE | 2023-11-14 09:05 | Anesthesia Procedure Note ---
Date of Service November 14, 2023 Anesthesia Post Epidural Note Vital Signs Vital Signs: Temp Pulse Resp BP Pulse Ox O2 Del Method 98.1 F 72 16 136/87 99 Room Air 11/14/23 08:00 11/14/23 08:00 11/14/23 08:00 11/14/23 08:00 11/14/23 08:00 11/14/23 08:00 Pain Intensity Right Upper Abdomen: Pain Intensity: 3 Notes Mental Status: alert / awake / arousable and participated in evaluation Nausea / Vomiting: adequately controlled Pain: adequately controlled Airway Patency, RR, SpO2: stable & adequate BP & HR: stable & adequate Hydration State: stable & adequate Neuraxial Anesthesia: was administered and sensory block is resolving Anesthetic Complications: no major complications apparent and Pt Satisfied with anesthetic care Epidural: Removed without complications and With tip intact
[2023-11-14] MEDS: bisacodyL 5 MG TABEC PO SCH (21:37)
--- NOTE | 2023-11-15 06:28 | Obstetrical Progress Note ---
Date of Service November 15, 2023 Assessment & Plan (1) Encounter for care and examination after delivery: Plan 42 y/o PPD#2 s/p Feels well today Encourage ambulation Vial signs reviewed Pain control Encourage Rubella immune, BGT: O+ Continue post care discharge home today, instructions reviewed Follow up in 6 weeks in office Admission and Anticipated Discharge Date Admission Date: November 13, 2023 Supervising Physician Co-Signing Physician Notes Patient seen with resident and agree with the above findings and plan. Doing well and stable for discharge Subjective 42 yo post- day 2 s/p Ambulation: ambulating normally Voiding: no voiding problems Passing Gas:: Yes Diet Tolerance:: regular diet Lochia:: Small Feeding Type: breast feeding Current Pain Level: mild Resting comfortably this AM in NAD. Denies PARDO, CP, SOB, N/V/D, LE pain/swelling. Review of Systems Review of Systems: as per hpi Physical Exam Physical Exam: General: patient resting comfortably, NAD, non-toxic in appearance, AA&O x 4, answers questions appropriately. Heart: +S1/S2, regular, no m/r/g Lungs: equal air entry bilaterally, no rales/rhonchi/wheezes Abd: +BS, soft, NT/ND, uterine fundus firm at umbilicus Ext: warm, no clubbing/cyanosis or edema, Henrik's neg. Neuro: nonfocal, patient AA&O x 4, speech intact, no facial droop, moving all extremities on command. Results & Data Vital Signs (Past 12 Hours) Vital Signs Temp Pulse Resp BP O2 Del Method 11/14/23 23:02 36.8 C 76 14 118/81 Room Air 11/14/23 19:45 36.6 C 63 16 120/78 Room Air Resident Activity Tracking Resident Involvement: Resident Care Provided Care Provided: OB Delivery
== END 2023-11-15 12:20 | disposition home or self-care (01) | DRG 807 ==
LOC: OPB 13:40 → 4S1 13:41 → 4E2 11-14 00:30